=== PATIENT | female | born 1965 | race Caucasian/White ===

== ENCOUNTER 2017-01-09 18:07 | Emergency (ER) | payer OTHER | END 2017-01-09 22:14 | disposition home or self-care (01) | LOC: ER 18:07 | DX: S40.021A Contusion of right upper arm, initial encounter (principal); S40.011A Contusion of right shoulder, initial encounter; V40.6XXA Car passenger injured in collision with pedestrian or animal in traffic accident, initial encounter; Y92.410 Unspecified street and highway as the place of occurrence of the external cause; I10 Essential (primary) hypertension; Z79.899 Other long term (current) drug therapy; Z79.1 Long term (current) use of non-steroidal anti-inflammatories (NSAID); F17.210 Nicotine dependence, cigarettes, uncomplicated | CPT/HCPCS: 73030; 73060; 99070; 99284 ==